=== PATIENT | male | born 1965 ===

== ENCOUNTER 2018-08-10 20:03 | Emergency (ER) | payer BC ==
--- NOTE | 2018-08-10 20:10 | UC ---
Laceration HPI - HPI Summary HPI Summary: pt presents with laceration to left middle finger - occurred on metal dryer vent. cleaned and bandaged at home Pt RHD. no paresthesia, no pain no other complaints. Pt states tetanus 2 years ago "pretty sure" Not immunocompromised Pt's medications reviewed this visit - History Of Current Complaint Stated Complaint: FINGER LAC Time Seen by Provider: 08/10/18 20:09 Hx Obtained From: Patient Laceration Location: Finger Mechanism Of Injury: Sharp Trauma Onset/Duration: Sudden Onset Severity: Mild Pain Intensity: 0 Pain Scale Used: 0-10 Numeric - Allergies/Home Medications Allergies/Adverse Reactions: Allergies Allergy/AdvReac Type Severity Reaction Status Date / Time COTNRAST DYE Allergy Unknown Uncoded 08/10/18 20:10 Reaction Details Home Medications: Home Medications Allopurinol TAB* [Zyloprim 300 MG TAB*] 300 mg PO DAILY 08/10/18 [History Confirmed 08/10/18] Budesonide/Formote 80/4.5(NF) [Symbicort 80/4.5 (NF)] 2 puff PO DAILY 08/10/18 [ History Confirmed 08/10/18] Cetirizine HCl [Zyrtec] 10 mg PO DAILY 08/10/18 [History Confirmed 08/10/18] Montelukast Sodium TAB* [Singulair TAB*] 10 mg PO DAILY 08/10/18 [History Confirmed 08/10/18] Pantoprazole Sodium [Protonix] 40 mg PO DAILY 08/10/18 [History Confirmed ] Prostate Medication 08/10/18 [History] Ranitidine TAB (NF) [Zantac TAB (NF)] 150 mg PO BID 08/10/18 [History Confirmed 08/10/18] Rosuvastatin (NF) [Crestor (NF)] 10 mg PO 1700 08/10/18 [History Confirmed 08/10] Tamsulosin CAP* [Flomax CAP*] 0.8 mg PO DAILY 08/10/18 [History Confirmed ] Venlafaxine HCl [Effexor Xr] 37.5 mg PO DAILY 08/10/18 [History Confirmed ] dilTIAZem HCl [Cardizem 30 MG TAB] 30 mg PO DAILY 08/10/18 [History Confirmed ] PMH/Surg Hx/FS Hx/Imm Hx Previously Healthy: Yes - Family History Known Family History: Positive: Non-Contributory - Social History Occupation: Employed Full-time Lives: With Family Smoking Status (MU): Never Smoked Tobacco Review of Systems All Other Systems Reviewed And Are Negative: Yes Skin: Positive: Other - laceration left middle finger Physical Exam - Summary Physical Exam Summary: Vital Signs Reviewed: Yes A+Ox3, no distress Eyes: Conjunctiva Clear ENT: Hearing grossly normal neck: supple Respiratory: Positive: No respiratory distress, No accessory muscle use Cardiovascular: skin color reflect adequate perfusion 2+ radial Musculoskeletal Exam: + flex/ext MCP, PIP, DIP without difficulty or weakness. Neurological: Positive: Alert, ambulatory without difficulty, + gross sensation throughout finger Psychological: Positive: Normal Response To Family Skin: Positive: no rash, no ecchymosis, Pt with "U" shaped flap left middle finger along middle phalnx well approximated, no active bleeding Triage Information Reviewed: Yes Laceration Repair - Laceration Repair 1 Procedure Summary: verbal permission to treat time out completed with RN at bedside pt prepped in usual, sterile fashion copious irrigation with 250ml sterile saline under pressure pt tolerated well sutures civered with steri strips and tube gauze reviewed with pt wound care s/s infection return precautions Cleansing Completed Via Routine Prep: Yes Closure Material: SteriStrips, Sutures - 2 Closure Method: Single Layer Suture Of: Skin Suture Type: Nylon - 5-0 Laceration Course/Dx - Course/Dx Course Of Treatment: Pt present with laceration left middle finger. Full CSM. flap closed with 2 simple interrupted sutures. Pt tolerated well. wound care. confirm tetanus. motrin/apap. suture removal. monitor for infection. BP mildly elevated - recommended PCP f/u - Diagnosis Provider Diagnosis: Laceration of left middle finger Discharge - Sign-Out/Discharge Documenting (check all that apply): Patient Departure All imaging exams completed and their final reports reviewed: No Studies - Discharge Plan Condition: Stable Disposition: HOME Patient Education Materials: Finger Laceration (ED) Referrals: Nghia Romeo DO [Primary Care Provider] - Additional Instructions: - your stitches should come out in 8-10 days - you can return here, go to your Doctor or any urgent care center - okay to alternate ibuprofin (advil, motrin) and tylenol every 3hours as needed for pain -Anticipate increased discomfort over the next several hours as the numbing medication wears off -Keep your wound clean and dry - no soaking for 24 hours. Then, okay for wound to get wet - pat dry, don't rub. If steri strips come off, okay to reapply for the first 5 days. Following this, apply a thin layer of antibiotic ointment ( neosporin, polysporin) 2-3 times a day - keep your wound clean - monitor for signs of infection - reddness, red streaking, odor, green drainage - It is recommended you confirm with your doctor that your tetanus vaccination is current - Contact your doctor or return here with questions or concerns - Billing Disposition and Condition Condition: STABLE Disposition: Home
[2018-08-10 20:20] VITALS: BP 145/67
[2018-08-10] MEDS ORDERED: Lidocaine 1% MPF* 2 ML VIAL INJ ONE (20:29)
[2018-08-10] MEDS ORDERED: Lidocaine 1%* 5 ML VIAL ONE (20:32)
[2018-08-10] MEDS ORDERED: Benzoin Compound STICK TOPICAL ONE (20:49)
== END 2018-08-10 21:06 | disposition home or self-care (01) ==
LOC: UCEAST 20:03
DX: S61.213A Laceration without foreign body of left middle finger without damage to nail, initial encounter (principal); W26.8XXA Contact with other sharp object(s), not elsewhere classified, initial encounter; Y92.9 Unspecified place or not applicable; Z91.041 Radiographic dye allergy status
CPT/HCPCS: 12001; 99201; G0463

== ENCOUNTER 2019-08-17 16:33 | Emergency (ER) | payer BC ==
--- OUTSIDE RECORDS SUMMARY | 2019-08-17 16:42 | XMS REPORT | Summary of Care ---
:1965 Author Organization [facility] Address [address] [address] Care Team Providers Name Role Phone Wilfred Miranda Primary Care Provider Reason for Visit Reason Comments Follow Up f/u psa, retention Encounter Details Date Type Department Care Team Description 06/24/2019 Office Visit [facility] [place], Retention of urine (Primary Dx); [address] MD Feliciano Elevated prostate specific antigen (PSA) [place] [address] [address] [phone] [place] [address] [phone] Allergies Active Allergy Reactions Severity Noted Date Comments Dye Intravenous Cardiac Reaction High 12/10/2017 Family history of Radiographic Imaging coding due to Contrast cardiac reaction. Environmental Respiratory Reaction 12/10/2017 documented as of this encounter (statuses as of 06/24/2019) Medications Medication Sig Dispensed Refills Start Date End Date Status Albuterol Sulfate Take 2 Puffs by 0 Active (PROAIR HFA IN) inhalation NEEDED. Budesonide-Formoterol Take 2 Puffs by 0 Active Fumarate (SYMBICORT IN) inhalation NEEDED. Cetirizine HCl (ZYRTEC Take 10 mg by 0 Active ALLERGY) 10 MG Oral Cap mouth DAILY. Pantoprazole Sodium Take 40 mg by 90 Packet 0 03/26/2018 Active (PROTONIX) 40 MG Oral mouth EVERY Pack BEDTIME. mometasone (NASONEX) 50 Poynette 1 Poynette in 1 Bottle 0 11/02/2018 Active MCG/ACT Nasal nose DIRECTED. SuspensionIndications: 2 sprays in each Acute URI nostril once daily finasteride (PROSCAR) 5 Take 1 Tab by 60 Tab 6 12/10/2018 Active MG Oral Tab mouth DAILY. ranitidine (ZANTAC) 150 TAKE ONE TABLET 180 Tab 0 01/27/2019 Active MG Oral TabIndications: BY MOUTH AT Gastroesophageal reflux BEDTIME disease, esophagitis presence not specified Rosuvastatin Calcium TAKE ONE TABLET 90 Tab 1 02/15/2019 Active (CRESTOR) 10 MG Oral BY MOUTH AT Tab BEDTIME tolterodine (DETROL LA) TAKE ONE CAPSULE 90 Cap 1 02/15/2019 Active 4 MG Oral CAPSULE SR 24 BY MOUTH EVERY HRIndications: Urinary DAY urgency allopurinol (ZYLOPRIM) TAKE ONE TABLET 90 Tab 1 02/15/2019 Active 300 MG Oral Tab BY MOUTH EVERY DAY Tamsulosin HCl (FLOMAX) TAKE TWO CAPSULES 180 Cap 1 03/29/2019 Active 0.4 MG Oral BY MOUTH EVERY CapIndications: Benign DAY prostatic hyperplasia with urinary frequency venlafaxine (EFFEXOR Take 1 Cap by 90 Cap 1 05/04/2019 Active XR) 75 MG Oral CAPSULE mouth DAILY. SR 24 HRIndications: Depression, unspecified depression type diltiazem (CARTIA XT) Take 1 Cap by 90 Cap 1 05/04/2019 Active 180 MG Oral CAPSULE SR mouth DAILY. 24 HRIndications: Hypertension, unspecified type montelukast (SINGULAIR) Take 1 Tab by 90 Tab 1 05/04/2019 Active 10 MG Oral Tab mouth DAILY. documented as of this encounter (statuses as of 06/24/2019) Active Problems Problem Noted Date Mass of thigh, right 12/10/2017 Overview: Added automatically from request for surgery [id number] BPH (benign prostatic hyperplasia) ANTOHNY on CPAP Hypercholesteremia Ruano's esophagus Asthma Gout Overview: no flare in 2-3 years documented as of this encounter (statuses as of 06/24/2019) Immunizations Name Administration Dates Next Due Influenza (IM) Preservative Free 05/04/2019, 05/11/2018 documented as of this encounter Social History Tobacco Use Types Packs/Day Years Used Date Never Smoker Smokeless Tobacco: Never Used Alcohol Use Drinks/Week oz/Week Comments Yes every few weeks Sex Assigned at Date Recorded Not on file Job Start Date Occupation Industry Not on file Not on file Not on file Travel History Travel Start Travel End No recent travel history available. documented as of this encounter Last Filed Vital Signs Vital Sign Reading Time Taken Comments Blood Pressure 138/93 06/24/2019 1:03 PM EST Pulse 100 06/24/2019 1:03 PM EST Temperature - - Respiratory Rate - - Oxygen Saturation - - Inhaled Oxygen Concentration - - Weight - - Height - - Body Mass Index - - documented in this encounter Progress Notes Feliciano Marquez MD - 06/24/2019 1:00 PM EST PATIENT: Haider Ramos : 1965 DATE OF SERVICE: 06/24/2019 REFERRING PRACTITIONER: Self-Referred PRIMARY CARE PROVIDER: Wilfred Miranda CHIEF COMPLAINT: No chief complaint on file. Subjective HISTORY OF PRESENT ILLNESS: Haider Ramos is a 54-y.o. male who presents for followup of elevated PSA Negative prostate biopsy Confirm MDx negative Voiding luts++ On Flomax. Discussed option of addition of finasteride But he just wants to continue on Flomax for now PSA stable AUA: 24 PVR: zero cc Results for HAIDER RAMOS ( ) as of 06/24/2019 12:57 Ref. Range 01/15/2018 09:15 05/18/2018 09:51 12/10/2018 08:39 05/04/2019 08:38 % Free Latest Units: % 20.3 PSA Latest Ref Range: <4.00 ng/mL 3.64 3.4 5.81 (H) 4.73 (H) PSA, Free Latest Ref Range: N/A ng/mL 0.69 Current Outpatient Medications Medication Sig Albuterol Sulfate (PROAIR HFA IN) Take 2 Puffs by inhalation NEEDED. allopurinol (ZYLOPRIM) 300 MG Oral Tab TAKE ONE TABLET BY MOUTH EVERY DAY Budesonide-Formoterol Fumarate (SYMBICORT IN) Take 2 Puffs by inhalation NEEDED. Cetirizine HCl (ZYRTEC ALLERGY) 10 MG Oral Cap Take 10 mg by mouth DAILY. diltiazem (CARTIA XT) 180 MG Oral CAPSULE SR 24 HR Take 1 Cap by mouth DAILY. finasteride (PROSCAR) 5 MG Oral Tab Take 1 Tab by mouth DAILY. mometasone (NASONEX) 50 MCG/ACT Nasal Suspension Poynette 1 Poynette in nose DIRECTED. 2 sprays in each nostril once daily montelukast (SINGULAIR) 10 MG Oral Tab Take 1 Tab by mouth DAILY. Pantoprazole Sodium (PROTONIX) 40 MG Oral Pack Take 40 mg by mouth EVERY BEDTIME. ranitidine (ZANTAC) 150 MG Oral Tab TAKE ONE TABLET BY MOUTH AT BEDTIME Rosuvastatin Calcium (CRESTOR) 10 MG Oral Tab TAKE ONE TABLET BY MOUTH AT BEDTIME Tamsulosin HCl (FLOMAX) 0.4 MG Oral Cap TAKE TWO CAPSULES BY MOUTH EVERY DAY tolterodine (DETROL LA) 4 MG Oral CAPSULE SR 24 HR TAKE ONE CAPSULE BY MOUTH EVERY DAY venlafaxine (EFFEXOR XR) 75 MG Oral CAPSULE SR 24 HR Take 1 Cap by mouth DAILY. No current facility-administered medications for this visit. Allergies Allergen Reactions Dye Intravenous Radiographic Imaging Contrast Cardiac Reaction Family history of coding due to cardiac reaction. Environmental Respiratory Reaction REVIEW OF SYSTEMS: All remaining review of systems was negative except for as noted in the history of present illness/subjective. Objective PHYSICAL EXAMINATION: VITALS: There were no vitals taken for this visit. There is no height or weight on file to calculate BMI. GENERAL: healthy, well nourished, in no distress. LUNGS: good air entry bilaterally, no crackles or wheezes. HEART: regular rhythm, no murmurs, no gallops, no rubs. ABDOMEN: no palpable masses, organomegaly or hernias, no peritoneal, flank or bladder tenderness. GENITOURINARY: Penis: no shaft lesion, normal meatus and glans, Scrotum: no lesions, cysts, or hydrocele noted, Testicles: normal size,symmetry,position and consistency, Prostate: symmetrical withno tenderness or bogginess, no palpable indurations or nodules. LABORATORY DATA: Urine today in the office is na DIAGNOSTIC DATA: Diagnostic tests reviewed today: labs and post void residual Plan IMPRESSION/PLAN: elevated PSa and Lower Urinray tract symptoms Continue Flomax PSA check and review with AUA and post void residual in 6 months If PSA rises would recommend MRI fusion - he is happy with this arrangement Author: Feliciano Marquez MD 06/24/2019 12:56 documented in this encounter Plan of Treatment Date Type Specialty Care Team Description 09/30/2019 Office Visit Family Practice Tor Walters MD [address] [place] [address] [phone] Name Type Priority Associated Diagnoses Order Schedule PSA, TOTAL (FOLLOW-UP Lab Routine Elevated prostate specific Expected: 11/2018 DIAGNOSTIC) antigen (PSA) (Approximate), Expires: 06/24/2020 Health Maintenance Due Date Last Done Comments ZOSTER IMMUNIZATION SERIES 2014 (1 of 2) LIPID DISORDER SCREENING 02/16/2020 02/15/2019, 11/16/2018, 01/15/2018 DEPRESSION SCREENING 05/04/2020 05/04/2019 DIABETES SCREENING 05/04/2020 05/04/2019, 11/16/2018, 11/16/2018, Additional history exists Colonoscopy 06/20/2020 Postponed from 2014 (Other) HIV SCREENING 12/23/2020 Postponed from 1979 (Patient refused) PNEUMOCOCCAL 0-64 YRS (1 of 11/03/2023 Postponed from 1 - PPSV23) 1970 (Other) HEPATITIS C SCREENING Completed 01/15/2018 INFLUENZA VACCINE Completed 05/04/2019, 05/11/2018 HPV IMMUNIZATION SERIES Aged Out No longer eligible based on patient's age to complete this topic MENINGOCOCCAL VACCINE IMM Aged Out No longer eligible based on patient's age to complete this topic documented as of this encounter Goals Goal Patient Goal Associated Recent Patient-Stated? Author Type Problems Progress Blood Pressure Blood Pressure 138/93 No Nghia Romeo < 140/90 (06/24/2019 DO Salome 1:03 PM EST) Note: This is an individualized treatment (blood pressure) goal for Haider Ramos: Displayed above (on the left) is your goal for blood pressure control. Your most recent blood pressure is also shown above, on the right. You should try to achieve blood pressures that are lower than your goal listed above (on the left). Depression screen (PHQ-9) total score < 5 Depression No Nghia Romeo DO Note: This is an individualized treatment (depression) goal for Haider Ramos: Displayed above is your goal for a depression screening (PHQ-9) score that would indicate good control of your depression. Weight loss vs. 18 mo max Lifestyle 0 (05/04/2019 8:12 AM EDT) No Nghia Romeo DO (lbs) >= 10 Note: This is an individualized lifestyle goal for Haider Ramos: Your body mass index (BMI) is more than 30. You should lose weight. A reasonable starting goal is to lose 10 pounds. Displayed above is how many pounds you have lost thus far towards your 10 pound weight loss goal. Keep a regular sleep schedule Lifestyle No Nghia Romeo DO Note: This is an individualized lifestyle goal for Haider Ramos: Please maintain a regular sleep schedule. This may help with some symptoms of depression. Take all prescribed medications as directed Self-management No Nghia Romeo DO Note: This is an individualized self-management goal for Haider Ramos: Please take all prescribed medications as directed. 1. Do not skip doses. If you cannot afford your medications, talk with your doctor. 2. Use a pill reminder system such as a pill box if needed. Your pharmacist can help you with this. 3. Contact your Pharmacy 5 days before your medication runs out. If you cannot take your medications for any reasons, talk with your doctor. 4. Please bring all of your medication bottles and inhalers (or a list of all your medications/inhalers) with you to every visit. Potential barriers to meeting all of your care plan goals will continue to be addressed on an ongoing basis. documented as of this encounter Procedures Procedure Name Priority Date/Time Associated Comments Diagnosis POST VOID RESIDUAL Routine 06/24/2019 1:06 Retention of urine Results for this MEASUREMENT PM EST procedure are in the results section. documented in this encounter Results POST VOID RESIDUAL MEASUREMENT (06/24/2019 1:06 PM EST) POST VOID RESIDUAL 0 ml [facility] POCT Specimen Performing Organization Address [facility] Phone Number [facility] [address]CT [address] [address] documented in this encounter Visit Diagnoses Diagnosis Retention of urine - Primary Retention of urine, unspecified Elevated prostate specific antigen (PSA) documented in this encounter documented as of this encounter
[2019-08-17 16:45] VITALS: BP 154/88
[2019-08-17] MEDS ORDERED: Ibuprofen TAB* 600 MG PO ONE (17:34)
[2019-08-17 17:37] LABS: Influenza A Molecular Negative (Negative); Influenza B Molecular Negative (Negative)
--- NOTE | 2019-08-17 17:40 | UC ---
FLU HPI - HPI Summary HPI Summary: 54-year-old male comes in with a chief complaint of fever chills bodyaches sore throat runny nose. Had some fevers and chills 3 days ago. The last 24 hours been feeling a lot worse. His eyes being treated for strep throat and he wonders if he has strep throat. Also has a painful rash underneath his left breast. He's tried some acetaminophen which helped somewhat symptoms. No complaint of burning with urination urinary frequency or other signs of UTI. Patient does have BPH. - History of Current Complaint Chief Complaint: UCGeneralIllness Stated Complaint: FEVER AND RASH Time Seen by Provider: 08/17/19 17:23 Pain Intensity: 0 - Allergy/Home Medications Allergies/Adverse Reactions: Allergies Allergy/AdvReac Type Severity Reaction Status Date / Time COTNRAST DYE Allergy Unknown Uncoded 08/10/18 20:10 Reaction Details Home Medications: Home Medications Acetaminophen 650 mg PO Q4H PRN 08/17/19 [History Confirmed 08/17/19] Multivit with Iron,Minerals [Super Multiple] 1 tab PO DAILY 08/17/19 [History Confirmed 08/17/19] PMH/Surg Hx/FS Hx/Imm Hx Previously Healthy: Yes - GOUT,BPH Endocrine History: Dyslipidemia Cardiovascular History: Hypertension GI/ History: Gastroesophageal Reflux - Surgical History Surgical History: Yes Surgery Procedure, Year, and Place: tonsillectomy. nasal recontruction. esophageal ablations. - Family History Known Family History: Positive: Non-Contributory - Social History Alcohol Use: Occasionally Substance Use Type: None Smoking Status (MU): Never Smoked Tobacco - Immunization History Most Recent Tetanus Shot: unknown Review of Systems All Other Systems Reviewed And Are Negative: Yes Constitutional: Positive: Fever, Chills, Fatigue, Other - SEE HPI Skin: Positive: Rash - SEE HPI Eyes: Positive: Negative ENT: Positive: Sore Throat, Nasal Discharge Respiratory: Positive: Cough Cardiovascular: Positive: Negative Gastrointestinal: Positive: Negative Motor: Positive: Negative Neurovascular: Positive: Negative Musculoskeletal: Positive: Myalgia Neurological: Positive: Negative Psychological: Positive: Negative Is Patient Immunocompromised?: No Physical Exam Triage Information Reviewed: Yes Appearance: No Pain Distress, Well-Nourished, Ill-Appearing - MILD Vital Signs: Initial Vital Signs Temp 102.8 F 08/17/19 16:41 Pulse 116 08/17/19 16:41 Resp 20 08/17/19 16:41 BP 154/88 08/17/19 16:41 Pulse Ox 98 08/17/19 16:41 Vital Signs Reviewed: Yes Eye Exam: Normal Eyes: Positive: Conjunctiva Clear ENT: Positive: Pharyngeal erythema, Nasal congestion, Nasal drainage, TMs normal Neck: Positive: Supple Respiratory: Positive: Lungs clear, Normal breath sounds, No respiratory distress Cardiovascular: Positive: RRR Musculoskeletal: Positive: Strength Intact, ROM Intact Neurological: Positive: Alert, Muscle Tone Normal Psychological: Positive: Age Appropriate Behavior Skin: Positive: Other - In the skin fold underneath the left breast there is a 6 cm x 1.5 cm flat patch of erythema that's moist in the middle and dry around the edges most consistent with a María infection. Flu Course/Dx - Course Course Of Treatment: Strep and influenza were all negative. Urine shows some blood but no leukocytes. Patient does not have a urinary tract infection symptoms this time. He is minimal chest congestion. Overall his symptoms are most consistent with influenza. We discussed viral verses bacterial infection and the role of antibiotics and the patient prefers to be on antibiotics at this time. Another possibility is a prostatitis given the blood in the urine and history of BPH. Patient will follow-up with urology for the hematuria. We discussed that if he did not improve or worsened he should go the emergency department for further evaluation and care. - Differential Dx/Diagnosis Provider Diagnosis: Yeast infection of the skin, Fever, Myalgia, Hematuria Discharge ED - Sign-Out/Discharge Documenting (check all that apply): Patient Departure All imaging exams completed and their final reports reviewed: No Studies - Discharge Plan Condition: Stable Disposition: HOME Prescriptions: Amoxicillin/Clavulanate TAB* [Augmentin TAB 875*] 875 mg PO BID #20 tab Ketoconazole 2 % CREAM (NF) [Nizoral 2% CREAM (NF)] 1 applic TOPICAL BID #1 tube Patient Education Materials: Fever in Adults (ED), Hematuria (ED), Skin Yeast Infection (ED) Referrals: Nghia Romeo DO [Primary Care Provider] - Aung Johnson MD [Medical Doctor] - Noé Venegas MD [Medical Doctor] - Additional Instructions: FOLLOW UP WITH YOUR DOCTOR IF NOT COMPLETELY IMPROVED. Follow-up with urology for you or hematuria. GO TO THE EMERGENCY DEPARTMENT IF NOT IMPROVED OR WORSE OR ANY QUESTIONS OR CONCERNS. - Billing Disposition and Condition Condition: STABLE Disposition: Home
== END 2019-08-17 18:19 | disposition home or self-care (01) ==
LOC: UCEAST 16:33
DX: B37.2 Candidiasis of skin and nail (principal); M79.10 Myalgia, unspecified site; R50.9 Fever, unspecified; R31.9 Hematuria, unspecified; I10 Essential (primary) hypertension; J02.9 Acute pharyngitis, unspecified; R09.89 Other specified symptoms and signs involving the circulatory and respiratory systems; R05 Cough; R53.83 Other fatigue; Z91.041 Radiographic dye allergy status
CPT/HCPCS: 81003; 87086; 87651; 99212; A9270-GY; G0463